=== PATIENT | male | born 1935 | race Caucasian/White ===

== ENCOUNTER → 2017-12-28 | Emergency (ER) | payer MEDICARE, OTHER ==
[~2017-12-28] VITALS: Ht 182.9 cm; Wt 70.3 kg
[~2017-12-28] MED LIST: AMLODIPINE BESYL5 MG PO; ASPIR-LOW81 MG PO; CRESTOR20 MG PO; FINASTERIDE5 MG PO; INCRUSE ELLI62.5 MCG; KLOR-CON M2020 MEQ PO; LASIX40 MG PO; METOPROLOL SUCC25 MG PO; NAPROSYN500 MG PO; NORCO 5-325 TA1 EACH PO; ROSUVASTATIN CA20 MG PO; VENTOLIN HFA18 GM INH
--- OUTSIDE RECORDS SUMMARY | ~2017-12-28 | XMS | Clinical Summary ---
Demographics + + + | Address | [address] | | | [place] [address] | + + + | Home Phone | | + + + | Preferred Language | Unknown | + + + | Marital Status | | + + + | Muslim Affiliation | Unknown | + + + | Race | Unknown | + + + | Ethnic Group | Unknown | + + + Author + + + | Author | [facility] | | | and [place] | + + + | Organization | [facility] | | | and [place] | + + + | Address | Unknown | + + + | Phone | Unavailable | + + + Support + + + + + | Name | Relationship | Address | Phone | + + + + + | Raymond Jacobs | [address] | [place], | | | | | [place] [address] | | + + + + + | Cesar Jacobs | ECON | Unknown | | + + + + + Care Team Providers + +------+ + | Care Printed Circuit Board Assembler Name | Role | Phone | + +------+ + | Adrián Jessica MD | PP | Unavailable | + +------+ + Allergies Not on File Current Medications Not on file Active Problems Not on file Social History + +-------+ +--------+------+ | Tobacco Use | Types | Packs/Day | Years | Date | | | | | Used | | + +-------+ +--------+------+ | Never Assessed | | | | | + +-------+ +--------+------+ + + + | Sex Assigned at | Date Recorded | | | | + + + | Not on file | | + + + Plan of Treatment + + + + + | Health Maintenance | Due Date | Last Done | Comments | + + + + + | Vaccine: | | | | | Dtap/Tdap/Td (1 - | 3 | | | | Tdap) | | | | + + + + + | Vaccine: Zoster (#1) | | | | | | 4 | | | + + + + + | Vaccine: | | | | | Pneumococcal 65+ | 9 | | | | Low/Medium Risk (1 | | | | | of 2 - PCV13) | | | | + + + + + | Vaccine: Influenza | | | | | (Season Ended) | 8 | | | + + + + + Results Not on filefrom Last 3 Months Insurance + +--------+ +--------+ +---------+ | Payer | Benefi | Subscriber | Type | Phone | Address | | | t Plan | ID | | | | | | / | | | | | | | Group | | | | | + +--------+ +--------+ +---------+ | MEDICARE | MEDICA | xxxxxxxxxx | Medica | [phone]- | | | | RE | | re | [phone] | | | | PART A | | | | | | | AND B | | | | | + +--------+ +--------+ +---------+ | CLAY | STERLI | xxxxxxxxxx | Indemn | [phone] | | | | NG | | ity | [phone] | | | | MDCR | | | | | | | SUPPL | | | | | | | CIGNA | | | | | + +--------+ +--------+ +---------+ + +--------+ +--------+ + + | Guarantor Name | Accoun | Relation to | Date | Phone | Billing Address | | | t Type | Patient | of | | | | | | | | | | + +--------+ +--------+ + + | LACHO JACOBS | Person | Self [birth year] Home: | [address] | | | al/Fam | | [phone] | [phone] | [place] [address] | | | leroy | | | [phone] | | + +--------+ +--------+ + +"
--- OUTSIDE RECORDS SUMMARY | ~2017-12-28 | XMS | Clinical Summary ---
Demographics + + + | Address | [address] | | | [place] [address] | + + + | Home Phone | | + + + | Preferred Language | Unknown | + + + | Marital Status | | + + + | Hindu Affiliation | Unknown | + + + | Race | Unknown | + + + | Ethnic Group | Unknown | + + + Author + + + | Author | [facility] | | | and [place] | + + + | Organization | [facility] | | | and [place] | + + + | Address | Unknown | + + + | Phone | Unavailable | + + + Support + + + + + | Name | Relationship | Address | Phone | + + + + + | Raymond Jacobs | [address] | [place], | | | | | [place] [address] | | + + + + + | Cesar Jacobs | ECON | Unknown | | + + + + + Care Team Providers + +------+ + | Care Scaffold Worker Name | Role | Phone | + [...] | STERLI | xxxxxxxxxx | Indemn | [phone] | | | | NG | | [...] | | al/Fam | | 1935 | [phone] | [place] [address] | | | [place]oy | | | [phone] | | + +--------+ +--------+ + +"
--- NOTE | 2017-12-28 14:32 | NUR ---
CHW received phone call before patient being seen in the ED from Thelma Borges. Cindy stated patient has been told he can no longer see Grace Solis as his PCP due to too many missed visits "which Thelma Corona was not aware of and or patient son." CHW contacted Grace Solis office and they stated that the patient is a higher standard of care and needs to be seen by an internal medicine doctor. They will refill his medications for the next 30 days. CHW provided the clinic packet to have patient to become established, CHW provided the packet to the patient son to fill out and he will turn it into the clinic to get the process started. CHW advised son to contact the clinic next week to make sure the process of the records is going okay and that a physician has been assigned.
--- NOTE | 2017-12-29 22:49 | EKG ---
[facility] [address] [facility] [place] [address] Signed Normal sinus rhythm Right bundle branch block Abnormal ECG When compared with ECG of 28-DEC-2016 10:36, premature atrial complexes are no longer present Confirmed by AMARI MONTES MD ([id number]) on 12/29/2017 10:48:50 PM Electronically Signed By: AMARI MONTES MD 12/29/17 2249 PATIENT NAME: NERY MCNALLY [place] Electrocardiogram DATE OF : 33 PHYSICIAN: AMARI MONTES MD REPORT #: [id number] REPORT IS CONFIDENTIAL AND NOT TO BE RELEASED WITHOUT AUTHORIZATION
== END ==
LOC: ED 14:09
DX: I13.0 Hypertensive heart and chronic kidney disease with heart failure and stage 1 through stage 4 chronic kidney disease, or unspecified chronic kidney disease (principal); N18.9 Chronic kidney disease, unspecified; I50.9 Heart failure, unspecified; J44.9 Chronic obstructive pulmonary disease, unspecified; F17.200 Nicotine dependence, unspecified, uncomplicated; Z79.899 Other long term (current) drug therapy
CPT/HCPCS: 71045; 80048; 83880; 84484; 85025; 93005; 93010; 99283

== ENCOUNTER 2018-11-07 20:04 | Inpatient (IN) | payer MEDICARE, OTHER ==
[~2018-11-07] VITALS: Ht 182.9 cm; Wt 78.1 kg
--- NOTE | 2018-11-08 01:43 | NUR ---
PATIENT ARRIVED TO THE FLOOR VIA STRETCHER. PATIENT ASSISTED TO THE HOSPITAL BED BY STAFF. PATIENTS ATTEND CHANGED. PATIENTS ADMISSION COMPLETED. PATIENT IS ON 4L VIA OXYMASK. RT IN ROOM. CPOX IN PLACE. PATIENT ORIENTED TO FLOOR, ROOM, AND CALL LIGHT. PATIENT VERBALIZES UNDERSTANDING. PATIENT WAS ABLE TO USE URINAL AND VOID. PATIENT DENIES ANY NEEDS. CALL LIGHT IN REACH. IV INFUSING PER ORDER. CALL LIGHT IN REACH. BED ALARM ON FOR SAFETY.
--- NOTE | 2018-11-08 05:11 | NUR ---
CURRENTLY RESINT, OXYMASK 4L NC O2 INPLACE. CHRONIC. BOTH EYES WITH SCANT YELLOW EYE DRAINAGE PRESENT AND RED CONJUCTIVA. HAS MOIST PRODUCTIVE COUGH OF THICK WHITE PHLEGM. RECEIVED NEBS, CRACKLES BOTH LUNGS. PT ASPIRATED FOOD AFTER EATING. . TURNS SELF IN BED. WAS COOPERATIVE WITH ASSESSMENT. BRUISING OF R ELBOW AND L HAND PRESENT, NOT OPEN.. BED ALARM ON
--- NOTE | 2018-11-08 07:22 | NUR ---
RECEIVED REPORT FROM SUSTAINABLE DEVELOPMENT POLICY ANALYST RN. PT LYING IN BED ON LEFT SIDE. 4L MASK IN PLACE. RESPIRATIONS EQUAL AND NONLABOED. CPOX IN PLACE. SATURATIONS 97%. FLUIDS COMPLETED. PT SALINE LOCKED. CALL LIGHT IN REACH. AND BED ALARM IN PLACE.
--- NOTE | 2018-11-08 09:13 | NUR ---
PT INCONT OF URINE. LINENS CHANGED. SBA WITH FWW TO CHAIR FOR BREAKFAST. PT WITH LABORED BREATHING. COUGHING UP LARGE AMOUNT OF CLEAR THICK SPUTUM. ACCAPELLA USED WHILE UP IN CHAIR. 4L NC IN PLACE. SATURATION 9`1% HEART RATE 74. PT IS SOME CONFUSED BTU REORIENTS EASY. MEDICATIONS ADMINISTERED. CALL LIGHT IN REACH. LUNGS COARSE. 3+ EDEMA IN LEFT FOOT, 2+ IN RIGHT FOOT. PT DENEIS N/T. BOWEL TONES ACTIVE. DENIES FURTHER NEEDS.
--- NOTE | 2018-11-08 09:53 | NUR ---
PT EXPECTING TO RETURN TO [facility].
--- NOTE | 2018-11-08 11:00 | NUR ---
SBA TO BATHROOM FOR MED BOWEL MOVEMENT.
[2018-11-08] MEDS ORDERED: ANORO ELLIPTA1 EACH INH (11:43)
[2018-11-08] MEDS ORDERED: PENLAC TOP (11:44)
[2018-11-08] MEDS ORDERED: FUROSEMIDE80 MG PO (11:45)
[2018-11-08] MEDS ORDERED: POTASSIUM CHLO20 ME1 PO (11:47)
[2018-11-08] MEDS ORDERED: TAMSULOSIN HCL0.4 MG PO (11:48)
[2018-11-08] MEDS ORDERED: TYLENOL325 MG PO (11:49)
--- NOTE | 2018-11-08 11:50 | NUR ---
PT IN CHAIR FOR LUNCH. CLEAR TRAY. 4L NC AND CPOX IN PLACE. SATURATIONS AND HEART RATE WNL. CALL LIGHT IN REACH.
[2018-11-08] MEDS ORDERED: ALBUTEROL2.5 MG/3 M INH (11:51)
[2018-11-08] MEDS ORDERED: IPRAT-ALBUT 0.5-3 ML INH (11:51)
[2018-11-08] MEDS ORDERED: MUCINEX600 MG PO (11:52)
[2018-11-08] MEDS ORDERED: MUSCLE RUB ULT114 GM TOP (11:54)
[2018-11-08] MEDS ORDERED: CICLOPIROX6.6 ML TOP (11:55)
--- NOTE | 2018-11-08 11:56 | NUR ---
MED REC COMPLETE
--- NOTE | 2018-11-08 13:54 | NUR ---
ST IN TO SEE PT
--- NOTE | 2018-11-08 14:15 | NUR ---
PT SITTING IN CHAIR, VOID BAG IN HAND. PT IS HARD OF HEARING-RATHER DIFFICULT TO CARRY ON CONVERSATION. CONFUSED TO WHY I WAS PRESENT, VISITED , EXTENDED A BLESSING, WILL FOLLOW NEEDED
--- NOTE | 2018-11-08 15:00 | NUR ---
DR MONTES IN TO ROUND ON PT. PLAN OF CARE DISCUSSED WITH PATIENT AND FAMILY. QUESTIONS ANSWERED.
--- NOTE | 2018-11-08 17:35 | NUR ---
PATIENT WITHOUT VOID. BLADDERSCAN WAS 460ML. DR MONTES NOTIFIED. ORDER TO STRAIGHT CATH.
--- NOTE | 2018-11-08 18:24 | NUR ---
STRAIGHT CATH WITH 450ML OUT. PT SBA TO BED. INCREASED WORK OF BREATHING WITH RESP 40 BREATHS PER MINUTE. O2 SATURATION 90-96% ON 4L NC, LUNGS WITH EX AND IN WHEEZING. RT NOTIFIED FOR BREATHING TREATMENT. TREATMENT DONE, RESPIRAITONS STAYED AT [address] MONTES NOT[address] DR MONTES TO FLOOR TO ASSESS PT. CHEST X RAY ORDERED. PT MOVED TO CCU.
--- NOTE | 2018-11-08 18:58 | NUR ---
PT TRANSFERED FROM MED/SURG. BIPAP PLACED PER RESP THERAPY. PT VITALS STABLE AT THIS TIME. PT SITTING UP STRAIGHT IN BED. WOB IS SIGNIFICANT.
--- NOTE | 2018-11-08 19:32 | NUR ---
PATIENT IS SITTING WITH HOB ELEVATED, RR 24 ON BIPAP, SPO2 97% WITH 28% FIO2. PATIENT DOES NOT APPEAR TO BE IN RESPIRATORY DISTRESS, WHEN ASKED HOW PATIENT IS FEELING, HE STATES "I DON'T REALLY KNOW HOW TO ANSWER THAT YET." DENIES NEEDS AT THIS TIME. LUNGS ARE CLEAR THROUGHOUT, DIM IN BASES, VITALS WNL. 2+ PITTING EDEMA IN BLE NOTED. PERIPHERAL PULSES WELL FELT IN ALL PERIPHERY. CALL LIGHT WITHIN REACH. RT IN ROOM TO START NEB TREATMENT.
--- NOTE | 2018-11-08 20:30 | NUR ---
DUE TO HISTORY OF BPH, ASKED DR. MONTES IF OKAY FOR COUDE PLACEMENT, HE WAS AGREABLE. PATIENT TOLERATED COUDE INSERTION WITH HOB DOWN TO 20 DEGREES, RR INCREASED TO 26, SPO2 REMAINS >95% REMAINING ON BIPAP. SMALL AMOUNT OF PALE YELLOW URINE RETURN NOTED, 5CC SALINE IN [place]. PATIENT NOTED TO REQUIRE FREQUENT RE-ORIENTATION TO SITUATION AND PLAN OF CARE. PATIENT NOW RESTING AGAIN WITH HOB ELEVATED. BED ALARM ON, CALL LIGHT WITHIN REACH, FAMILY AT BEDSIDE.
--- NOTE | 2018-11-08 20:59 | NUR ---
PATIENT NOW RESTFUL WITH EYES CLOSED, BREATHING IS EVEN AND UNLABORED, RR 18, SPO2 95% ON BIPAP WITH 28% FIO2. DENIES PAIN, DENIES NAUSEA, NO NEEDS AT THIS TIME. IVF INFUSING. CALL LIGHT WITHIN REACH, KIRAN DRAINING, BED ALARM ON.
--- NOTE | 2018-11-08 22:36 | NUR ---
PATIENT RESTFUL WITH EYES CLOSED, BREATHING IS EVEN AND UNLABORED, RR BETWEEN 19 AND 24 ON BIPAP, SPO2 96% ON 28% FIO2. DENIES NEEDS AT THIS TIME. CALL LIGHT WITHIN REACH, BED ALARM ON.
--- NOTE | 2018-11-09 | NUR ---
PATIENT RESTFUL WITH EYES CLOSED, BREATHING IS EVEN AND UNLABORED, SPO2 96% ON BIPAP WITH 28% FIO2, RR 17. DENIES NEEDS AT THIS TIME. RT IN TO DO BREATHING TREATMENT. CALL LIGHT WITHIN REACH, BED ALARM ON.
--- NOTE | 2018-11-09 01:27 | NUR ---
PATIENT RESTFUL WITH EYES CLOSED, BREATHING IS EVEN AND UNLABORED, SPO2 96%, RR 17 ON BIPAP, FIO2 28%. FLACC SCORE OF 0. CALL LIGHT WITHIN REACH, BED ALARM ON.
--- NOTE | 2018-11-09 03:35 | NUR ---
RESTFUL WITH EYES CLOSED, BREATHING IS EVEN AND UNLABORED, RR 18, SPO2 97% ON BIPAP 28% FIO2. FLACC SCORE OF 0. CALL LIGHT WITHIN REACH, BED ALARM ON.
--- NOTE | 2018-11-09 05:06 | NUR ---
BREATHING REMAINS UNLABORED WITH BIPAP, VITALS WNL. CALL LIGHT WITHIN REACH, BED ALARM ON.
--- NOTE | 2018-11-09 06:15 | NUR ---
PATIENT BREATHING IS EVEN AND UNLABORED ON BIPAP, VITALS WNL. DENIES NEEDS AT THIS TIME. CALL LIGHT WITHIN REACH, BED ALARM ON.
--- NOTE | 2018-11-09 07:05 | NUR ---
PATIENT REPORTS PAIN IN LOWER BACK, FLACC SCORE 4, PRN TYLENOL GIVEN PER PATIENT'S REQUEST, AFEBRILE. LINEN CHANGE DONE AFTER IV INFILTRATION. DENIES FURTHER NEEDS. CALL LIGHT WITHIN REACH, BED ALARM ON.
--- NOTE | 2018-11-09 07:30 | NUR ---
REPORT RECIEVED. PATIENT IS SITTING UP IN BED EATING BREAKFAST. TALKED WITH PATIENT ABOUT PLAN OF CARE FOR DAY. IVF, KIRAN CATH PATENT.
--- NOTE | 2018-11-09 07:50 | EKG ---
[facility] [address] [facility] [place] [address] Signed Poor data quality, interpretation may be adversely affected Normal sinus rhythm Right bundle branch block Abnormal ECG When compared with ECG of 28-DEC-2017 15:15, No significant change was found Confirmed by AMARI MONTES MD ([id number]) on 11/09/2018 7:50:40 AM Electronically Signed By: AMARI MONTES MD 11/09/18 0750 PATIENT NAME: NERY MCNALLY [place] Electrocardiogram DATE OF : 33 PHYSICIAN: AMARI MONTES MD REPORT #: [id number] REPORT IS CONFIDENTIAL AND NOT TO BE RELEASED WITHOUT AUTHORIZATION
--- NOTE | 2018-11-09 09:00 | NUR ---
ASSESSMENT DONE. TOOK BREAKFAST WELL. DENIES NAUSEA. HOB ELEVATED.
--- NOTE | 2018-11-09 09:30 | NUR ---
ROUTINE MEDICATIONS GIVEN, TOLERATED WELL. DENIES PAIN.
--- NOTE | 2018-11-09 10:06 | NUR ---
STUDENT NURSE AND RN ASSESSED PATIENT AT BEDSIDE. PATIENT RESTING COMFORTABLY IN BED. O2 SATS AT 91. RN AND SN ASSISTED PAITENT AMBULATION TO CHAIR. PATIENT CONFUSED AND DISORIENTED TO LOCATION AND SITUATION. PATIENT ABLE TO ORIENT TO TIME AND PLACE IF GIVEN TIME TO THINK. PATIENT SEEMS TO BE SLIGHTLY ANXIOUS AND HAVING TROUBLE RELAXING, SEEMS TO BE OVERSTIMULATED. PATIENT IS RECLINED IN CHAIR AT THIS TIME. WILL CONTINUE TO MONITOR.
--- NOTE | 2018-11-09 10:45 | NUR ---
TO COMMODE WITH ASSIST.
--- NOTE | 2018-11-09 11:00 | NUR ---
BACK TO BED AFTER HAVING BM. HAD FOMED STOOL. VERY SHORT OF BREATH WITH EXERTION. BIPAP APPLIED.
--- NOTE | 2018-11-09 12:05 | NUR ---
PATIENT RESTING WITH BIPAP. VITALS AND UOP ASSESSED AND CHARTED. PATIENT REMAINS SOMEWHAT DISORIENTED TO SITUATION, ABLE TO ORIENT WITH GUIDED CONVERSATION. PATIENT STATES FEELING FRUSTRATED AND WORTHLESS REGARDING SITUATION. RN ACKNOWLEDGED PT FEELINGS AND REASSURED PATIENT. O2 SATS AT 98 WITH BIPAP. NO COMPLAINTS OF PAIN OR DISCOMFORT AT THIS TIME.
--- NOTE | 2018-11-09 13:10 | NUR ---
SITING UP IN BED TO EAT LUNCH. BIPAP HELD, O2 AT 3 L NC APPLIED WHILE EATING.
--- NOTE | 2018-11-09 13:30 | NUR ---
TOOK LUNCH WELL. REMAINS ON O2 AT 3 L NC. LESS DYSPNEIC.
--- NOTE | 2018-11-09 13:35 | NUR ---
BISQUE PLACER FEELS PT HAS BEEN HELPED BY BI-PAP. PT WAS SITTING UP IN BED, NO TV ON AND ALONE IN RM. PTSEEMED SOMEWHAT ANXIOUS WITH MY PRESENCE. I GAVE HIM A BLESSING-HE SHOOK MY HAND, WITH SOME APPRENHENSION. GOD BLESS HIM
--- NOTE | 2018-11-09 14:40 | NUR ---
SLEEPING, NO DISTESS NOTED. REMAINS ON O2 A 3 L NC.
--- NOTE | 2018-11-09 16:00 | NUR ---
ASSESSMENT DONE. STATES HE FEELING BETTER NOW. HOB ELEVATED. NO FUTHER CHANGES.
--- NOTE | 2018-11-09 16:15 | NUR ---
TO COMMODE WITH ASSIST TO EXPELL LARGE FORMED BROWN STOOL. BACK TO BED AFTER SITTING ON COMMODE FOR APPROX 10. VERY DYSPNEIC UPON RETURN TO BED. BIPAP APPLIED.
--- NOTE | 2018-11-09 17:30 | NUR ---
TOOK DINNER WELL. IS SHORT OF BREATH, PRODUCTIVE COUGH. BIPAP REAPPLIED.
--- NOTE | 2018-11-09 18:33 | NUR ---
REMAINS ON O2 AT 3 L NC.
--- NOTE | 2018-11-09 19:51 | NUR ---
PATIENT IS RESTFUL WITH EYES CLOSED, BREATHING IS EVEN AND UNLABORED ON BIPAP, SPO2 BETWEEN 94 AND 96% WITH 28% FIO2, LUNGS ARE CLEAR, DIM IN BASES. DENIES PAIN, HAS NO NEEDS AT THIS TIME. IV SITE INTACT, IVF INFUSING PER ORDER. CALL LIGHT WITHIN REACH, BED ALARM ON.
--- NOTE | 2018-11-09 21:28 | NUR ---
PATIENT RESTING WELL WITH BIPAP, BREATHING IS UNLABORED. VITALS WNL, RR 18, SPO2 94% WITH 28% FIO2. CALL LIGHT WITHIN REACH, BED ALARM ON.
--- NOTE | 2018-11-09 23:16 | NUR ---
PATIENT REMAINS RESTFUL WITH BIPAP, VITALS WNL. CALL LIGHT WITHIN REACH, BED ALARM ON.
--- NOTE | 2018-11-10 03:04 | NUR ---
REMAINS RESTFUL WITH BIPAP, VITALS WNL. CALL LIGHT WITHIN REACH.
--- NOTE | 2018-11-10 04:45 | NUR ---
PATIENT RESTFUL, REQUIRED RE-ORIENTATION TO PLACE AND SITUATION. DENIES PAIN, DENIES NEEDS AT THIS TIME. LUNGS ARE CLEAR, BREATHING IS UNLABORED, RR 18, SPO2 95% ON BIPAP. CALL LIGHT WITHIN REACH, BED ALARM ON.
--- NOTE | 2018-11-10 06:23 | NUR ---
PATIENT REQUESTING BIPAP TO BE TAKEN OFF FOR A WHILE, PLACED ON 4L O2 VIA NC, SPO2 BETWEEN 94 TO 96%, TITRATED TO 3L, SPO2 NOW BETWEEN 89 AND 92%. PATIENT HAS PRODUCTIVE COUGH, THICK YELLOW SPUTUM EXPECTORATED. DENIES FURTHER NEEDS AT THIS TIME. CALL LIGHT WITHIN REACH, BED ALARM ON.
--- NOTE | 2018-11-10 07:40 | NUR ---
PT ASLEEP AT THIS TIME. NO S/S OF PAIN OR DISCOMFORT. WILL CONTINUE TO MONITOR.
--- NOTE | 2018-11-10 08:24 | NUR ---
PT IS WIDE AWAKE SITTING UP IN BED, VERY PLEASANT AND COOPERATIVE. PT COUGHING UPON MY ARRIVAL INTO THE ROOM, A VERY HARSH, LOOSE COUGH WITH THICK YELLOW SPUTUM PRODUCTION. PT SOMEWHAT ANXIOUS OVER HIS FREQUENT COUGH. PT IS DISORIENTED TO SITUATION/EVENT AND THE YEAR. THIS RN REORIENTED HIM. HE DENIES ANY PAIN OR N/V. LUNG SOUNDS ARE DIMINISHED. I PLACED PT BACK ON 4 L/MIN O2 VIA NC FROM 2 L/MIN HIS O2 SATS WERE IN THE 80'S. ACTIVE BOWEL SOUNDS. PT SIPPING COFFEE AT THIS TIME; STATES HE WANTS TO WAIT UNTIL HIS BREAKFAST IS HERE TO SIT UP IN RECLINER. TRACE PITTING EDEMA IN BLE. EDUCATION COMPLETED. PT DENIES ANY FUTHER NEEDS AT THIS TIME. CALL LIGHT WITHIN REACH. FALL PRECAUTIONS IN PLACE. WILL CONTINUE TO MONITOR.
--- NOTE | 2018-11-10 09:00 | NUR ---
ASSISTED PT X1 PERSON ASSIST, UP TO RECLINER FROM BED. PT NOW SITTING UP EATING BREAKFAST THAT HAS JUST ARRIVED. SOB WITH AMBULATION TO CHAIR. SOME WEAKNESS WHEN UP ON HIS FEET. DENIES ANY FURTHER NEEDS AT THIS TIME. CALL LIGHT WITHIN REACH. WILL CONTINUE TO MONITOR.
--- NOTE | 2018-11-10 09:48 | NUR ---
THIS RN ASSISTED PT TO AND FROM COMMODE/RECLINER PER HIS REQUEST FOR A BM. SMALL, SOFT BM WAS HAD. PT ALSO GIVEN FULL BATH AT THIS TIME. KIRAN CARE. ZENAIDA CARE. FACE WASHED AND DENTURE CARE PROVIDED. HE ATE 100% OF HIS EGGS AND TOAST AND DRINKING FLUIDS. PT REMAINS VERY SOB WITH AMBULATION AND EXERTION- NEEDS SUPPORT IN RELAXATION AND REMINDING TO DEEP BREATHE- HE GETS ANXIOUS. PT BACK IN RECLINER AT THIS TIME WITH ADEQUATE O2 SATURATIONS WITH 4 L/MIN O2 VIA NC IN PLACE. DENIES ANY FURTHER NEEDS. CALL LIGHT WITHIN REACH. FALL PRECAUTIONS IN PLACE. WILL CONTINUE TO MONITOR.
--- NOTE | 2018-11-10 10:24 | NUR ---
PT UP IN RECLINER, NAPPING WITHOUT ANY S/S F DISCOMFORT OR PAIN. NO SOB OR BREATHING ISSUES AT THIS TIME. CALL LIGHT WITHIN REACH. WILL CONTINUE TO MONITOR.
--- NOTE | 2018-11-10 11:40 | NUR ---
KIRAN CATH REMOVED AT THIS TIME WITHOUT COMPLICATION. NOW DUE TO VOID AND WILL CONTINUE TO MONITOR/ FOLLOW UP ON OUTPUT.
--- NOTE | 2018-11-10 12:01 | NUR ---
ASSESSMENT COMPLETE AGAIN AT THIS TIME. VS AND CONDITION STABLE. PT REMAINS AWAKE AND ALERT, CONFUSED/FORGETFUL, AND WITH INTERMITTENT ANXIETY, REQUIRING FREQUENT REMINDING TO DEEP BREATHE/OTHER RELAXATION TECHNIQUES. PT'S UP IN RECLINER WITH 4 L/MIN [address] WITH O2 SAT OF 93. THIS LAST HOUR HE WAS SEEN BY DR. MONTES AND RT FOR ANOTHER DUONEB TREATMENT. DUE TO VOID SINCE KIRAN REMOVED AT 1140. URINAL AT HIS SIDE. EDUCATION AND REINFORCEMENT COMPLETED. DENIES PAIN AND N/V. PT'S LUNCH HAS JUST ARRIVED WHICH HE IS STARTING TO EAT. DENIES ANY NEEDS AT THIS TIME. CALL LIGHT WITHIN REACH. FALL PRECAUTIONS IN PLACE. WILL CONTINUE TO MONITOR.
--- NOTE | 2018-11-10 13:19 | NUR ---
PT UP IN RECLINER RESTING, NO TACHYPNEA AT THIS TIME. HE STATES HE'S COMFORTABLE WITH NO REQUESTS OR NEEDS TO BE MET. CALL LIGHT WITHIN REACH. WILL CONTINUE TO MONITOR.
--- NOTE | 2018-11-10 13:39 | NUR ---
100% OF LUNCH EATEN (TURKEY SANDWICH WITH SIDE OF FRUIT). REMAINS UP IN RECLINER. PO POTASSIUM GIVEN WELL SCHEDULED SOLU-MED- EDUCATION ON MEDICATION PROVIDED. CALL LIGHT WITHIN REACH. WILL CONTINUE TO MONITOR.
--- NOTE | 2018-11-10 14:46 | NUR ---
PT RESTING IN RECLINER WITH NO CONCERNS OR NEEDS TO BE MET. STATES THAT HE'S COMFORTABLE. RESP RATE IS STABLE. CALL LIGHT WITHIN REACH. FALL PRECAUTIONS IN PLACE. WILL CONTINUE TO MONITOR.
--- NOTE | 2018-11-10 16:02 | NUR ---
ASSESSMENT COMPLETED. NO CHANGES TO ASSESSMENT OTHER THAN 1) COURSE CRACKLES HEARD IN BILATERAL BASES AND 2) PT HAS SINCE VOIDED 100 ML URINE INTO URINAL. PT REMAINS UP IN THE RECLINER, ABLE TO REPOSITION HIMSELF NEEDED. HE DENIES ANY PAIN OR N/V. NO CURRNT TACHYPNEA BUT STILL HAS MUCH SOB WITH EXERTION. PT USES ORAL YANKAUR HOOKED UP TO SUCTION TO ASSIST WITH HIS LARGE AMOUNT OF SPUTUM. REINFORCEMENT OF PLAN OF CARE GIVEN- PT FORGETFUL OF SITUATION AT TIMES. HE DENIES ANY NEEDS AT THIS TIME. CALL LIGHT WITHIN REACH. FALL PRECAUTIONS IN PLACE. WILL CONTINUE TO MONITOR.
--- NOTE | 2018-11-10 16:48 | NUR ---
2 VISITORS IN ROOM SEEING PT.
--- NOTE | 2018-11-10 17:10 | NUR ---
RAGHAV MORALESSIN GIVEN AGAIN AT THIS TIME. HE REMAINS PLEASANT UP IN THE RECLINER AWAITING HIS DINNER ORDER. PT STATES HE HAS NO NEEDS TO BE MET AT THIS TIME. CALL LIGHT WITHIN REACH. WILL CONTINUE TO MONITOR.
--- NOTE | 2018-11-10 18:27 | NUR ---
100% OF DINNER EATEN (PASTA WITH CHICKEN, DINNER ROLL, CUP OF FRUIT, ORANGE SHERBET AND CARROT CAKE). PT DRINKING COFFEE WITHOUT ANY CONCERNS OR NEEDS TO BE MET. CALL LIGHT WITHIN REACH. WILL CONTINUE TO MONITOR.
--- NOTE | 2018-11-10 18:43 | NUR ---
PRN TYLENOL GIVEN FOR PT'S C/O HEADACHE. HE REQUESTS TO SIT UP IN HIS RECLINER A WHILE LONGER BEFORE GETTING INTO BED FOR THE NIGHT. CALL LIGHT WITHIN REACH. WILL CONTINUE TO MONITOR.
--- NOTE | 2018-11-10 19:28 | NUR ---
PATIENT RESTFUL WITH EYES CLOSED SITTING UP IN CHAIR, SPO2 94% ON 4L O2 VIA NC, RR 25. PATIENT STATES "I AM FEELING OKAY RIGHT NOW." REPORTS FEELING MILDLY SOB. DENIES NEEDS AT THIS TIME. AT REST WITH EYES CLOSED AGAIN, RR DOWN TO 20. CALL LIGHT WITHIN REACH.
--- NOTE | 2018-11-10 21:04 | NUR ---
ASSISTED PATIENT FROM CHAIR TO BED WITH 1PA. PATIENT BECAME SOB WITH RR INCREASING BETWEEN 36 AND 42, SPO2 DOWN TO 86% WITH 4L O2 VIA NC, PATIENT APPEARS ANXIOUS AND STATES "THIS IS BAD, THIS IS REALLY BAD." ONCE IN BED, HOB ELEVATED TO 90 DEGREES, PLACED PATIENT ON ON BIPAP WITH 10 IPAP, 5 EPAP AND 28% FIO2, ENCOURAGED PATIENT TO ALLOW BIPAP TO ASSIST WITH VENTILATION. AFTER FIVE MINUTES ON BIPAP, PATIENT SPO2 96%, RR DOWN TO 20, PATIENT REPORTS "I AM STARTING TO FEEL BETTER NOW. IT IS EASIER TO BREATHE." APPEARS LESS ANXIOUS, BREATHING IS UNLABORED. LUNGS ARE CLEAR IN UPPER SAMUEL, LOWER SAMUEL ARE COARSE AND DIM. ALL VITALS NOW WNL. PATIETN DENIES FURTHER NEEDS AT THIS TIME. CALL LIGHT WITHIN REACH, BED ALARM ON.
--- NOTE | 2018-11-10 23:21 | NUR ---
ASSISTED TO BEDSIDE TO USE URINAL, PATIENT TOLERATED MOVEMENT WELL WITHOUT AN INCREASE IN WORK OF BREATHING, SPO2 REMAINS >88% WITH ACTIVITY. NOW RESTING COMFORTABLY IN BED AGAIN, BREATHING IS UNLABORED WITH BIPAP. DENIES FURTHER NEEDS. CALL LIGHT WITHIN REACH, BED ALARM ON.
--- NOTE | 2018-11-11 00:47 | NUR ---
RT IN ROOM TO DO SCHEDULED BREATHING TREATMENT, PATIENT AWAKE AND PULLING ON BIPAP MASK AND REQUESTING TO HAVE MASK TAKEN OFF. EDUCATED PATIENT ABOUT NEED FOR BIPAP TO ASSIST WITH BREATHING, PATIENT STATES HE UNDERSTANDS. REQUIRED RE-ORIENTATION TO PLACE AND SITUATION, PURPOSE FOR BIPAP AND BEING IN CCU. PATIENT AGREABLE TO PUT BIPAP BACK ON. NOW RESTING WITH BIPAP, DENIES FURTHER NEEDS AT THIS TIME. CALL LIGHT WITHIN REACH, BED ALARM ON.
--- NOTE | 2018-11-11 01:20 | NUR ---
PATIENT CONTINUES TO NOT TOLERATE BIPAP AND TRYING TO PULL IT OFF AND STATES "THIS THING IS KEEPING ME AWAKE." PATIENT PLACED ON 4L O2 NC. WITH NC, SPO2 94%, RR 20. DENIES FURTHER NEEDS. CALL LIGHT WITHIN REACH, BED ALARM ON.
--- NOTE | 2018-11-11 03:19 | NUR ---
PATIENT RESTFUL WITH EYES CLOSED, BREATHING IS UNLABORED, SPO2 96% ON 4L O2 VIA NC, RR 18. TITRATED O2 TO 3L. CALL LIGHT WITHIN REACH, BED ALARM ON.
--- NOTE | 2018-11-11 04:22 | NUR ---
PATIENT PLACED ON BIPAP AGAIN, RECEIVED NEB TREATMENT THROUGH MASK, TOLERATING BIPAP WELL, ABLE TO REST WITH EYES CLOSED. RR BETWEEN 14 AND 18 WHILE LAYING ON SIDE, SPO2 95%. DENIES NEEDS AT THIS TIME. CALL LIGHT WITHIN REACH.
--- NOTE | 2018-11-11 05:51 | NUR ---
PATIENT REMAINS RESTFUL WITH EYES CLOSED, FLACC SCORE OF 0. RR 17,, SPO2 93% WITH BIPAP. CALL LIGHT WITHIN REACH, BED ALARM ON.
--- NOTE | 2018-11-11 06:44 | NUR ---
PATIENT PULLING BIPAP OFF AND TRYING TO GET OUT OF BED TO GO TO BATHROOM. PLACED ON 4L O2 NC, ASSISTED TO SITTING AT EDGE OF BED. PATIENT TACHYPNEIC WITH ACTIVITY, RR UP TO HIGH 30s, SPO2 DOWN TO 86%. PATIENT STATES FEELING "VERY ANXIOUS." ONCE DONE VOIDING, PATIENT PUT BACK TO BED AND PLACED BACK ON BIPAP, ENCOURAGED PATIENT TO REST WITH BIPAP BACK ON. PATIENT ASKS "WHAT CAUSES ALL OF THIS? I THOUGHT I WAS GETTING BETTER." EDUCATED PATIENT ABOUT CURRENT CONDITION AND THE PLAN OF CARE, UNABLE TO ASSESS PATIENT'S UNDERSTANDING DUE TO INCREASED WORK OF BREATHING AND ANXIETY. PATIENT NOW HAS RR OF 19, SPO2 98% AND STATES "I JUST NEED TO REST." CALL LIGHT WITHIN REACH.
--- NOTE | 2018-11-11 07:30 | NUR ---
PT VERY ANXIOUS, THRASHING AROUND IN BED, STATING HE'S A "NUTCASE," REPEATING THAT SOMETHING'S WRONG IN HIS HEAD, ASKING IF HE'S IN A PSYCH [place], ASKING US NOT TO "LET HIM LOOSE" BECAUSE HE'S "GOING CRAZY." EMOTIONAL SUPPORT GIVEN. THERAPEAUTIC COMMUNICATION. REINFORCEMENT AND REORIENTATION.
--- NOTE | 2018-11-11 07:48 | NUR ---
MORPHINE GIVEN AT THIS TIME. PT REPOSITIONED AND STRAIGHTENED UP IN BED, SITTING UP AT 75 DEGREES IN BED WITH BED ALARM IN PLACE.
--- NOTE | 2018-11-11 07:56 | NUR ---
PT MORE CALM AT THIS TIME. NO LONGER MOVING AROUND IN THE BED. SITTING UP SIPPING HIS COFFEE. MORE COMFORTING SUPPORT GIVEN AT THIS TIME TO CALM HIS NERVES. PT STATES HE "DOESN'T KNOW WHAT HE'S GOING TO DO." BED ALARM IN PLACE, CALL LIGHT WITHIN REACH. WILL CONTINUE TO CLOSELY MONITOR.
--- NOTE | 2018-11-11 08:19 | NUR ---
PT EATING BREAKFAST SITING UPRIGHT IN BED. AFTER SPENDING TIME TALKING WITH PT, DISTRACTING HIM WITH CONVERSATION FROM HIS ANXIETY, HE'S MORE CALM, ALTHOUGH STILL SOMEWHAT ANXIOUS. CALL LIGHT IN REACH, BED ALARM IN PLACE, WILL CONTINUE TO MONITOR.
--- NOTE | 2018-11-11 09:02 | NUR ---
PT RESTING IN BED. HE ATE 100% OF HIS BREAKFAST- EGG SANDWICH, FRUIT CUP AND YOGURT. HE'S SIPPING COFFEE RESTING, WITH SOME ANXETY. HE FREQUENTLY ASKS WHAT HE SHOULD BE DOING AND I REINFORCED TO COUGH/DEEP BREATHE AND REST. REMAINS ON 4 L/MIN O2 VIA NC. PRN ROBITUSSIN GIVEN WELL SCHEDULED MEDS. HE HAS NO OTHER QUESTIONS AT THIS TIME. DENIES ANY FURTHER NEEDS ANE DENIES ANY PAIN, DENIES N/V. COUGH REMAINS PRODUCTIVE WITH THICK SECRETIONS. CALL LIGHT WITHIN REACH. FALL PRECAUTIONS IN PLACE WITH BED ALARM ON. WILL CONTINUE TO MONITOR.
--- NOTE | 2018-11-11 10:05 | NUR ---
FULL BED BATH COMPLETE AT THIS TIME, INCLUDING PERICARE PRIOR TO KIRAN PLACEMENT SHORTLY. LINENS CHANGED. LOTION APPLIED TO DRY SKIN. FOUND PT'S BRIEF SATURATED WITH LARGE AMOUNT OF INCONTINENT URINE EPISODE. CHANGED AND CLEANED.
--- NOTE | 2018-11-11 10:20 | NUR ---
COUDE TIPPED CATHETER PLACED AT THIS TIME WITHOUT COMPLICATION- LIDOCAINE PROVIDED AT THE ENTRANCE SITE PRIOR WELL FULL ZENAIDA CARE WITH BED BATH PRIOR TO PLACEMENT. IMMEDIATE URINE FLOW OUTPUT 435 ML. KIRAN TO UROMETER BAG AND SECURED TO LEG WITH STATLOCK; KIRAN BELOW THE BLADDER.
--- NOTE | 2018-11-11 10:30 | NUR ---
SOB AND INABILITY TO CATCH HIS BREATHE AT THIS TIME- HE AGREED TO SPEND SOME TIME ON BIPAP. BIPAP PLACED AT THIS TIME.
--- NOTE | 2018-11-11 11:30 | NUR ---
PT REMAINS ON BIPAP AT THIS TIME- HE'S THE MOST AT EASE THAN HE'S BEEN ALL MORNING. EDUCATION GIVEN TO PT ABOUT BIPAP AND PT AGREES HE'D LIKE TO STAY ON IT IT HAS HELPED HIS WORK OF BREATHING. KIRAN IS DRAINING ADEQUATELY AND PT APPEARS VERY COMFORTABLE FOR THE FIRST TIME TODAY. PT DENIES ANY NEEDS. CALL LIGHT WITHIN REACH. FALL PRECAUTIONS IN PLACE WITH BED ALARM ON. WILL CONTINUE TO MONITOR.
--- NOTE | 2018-11-11 12:14 | NUR ---
ASSESSMENT COMPLETED AT THIS TIME. PT REMAINS ON BIPAP RESTING IN BED. PT DENIES PAIN, DENIES ANY N/V, AND DENIES ANY SOB OR BREATHING TROUBLES. HE APPEARS VERY COMFORTABLE AND HE WANTS TO KEEP BIPAP ON- HE STATES HE FEELS REALLY TIRED AND WEAK. EDUCATION GIVEN TO HIM ON OXYGENATION, COPD/WORK OF BREATHING, AND WHY HE WILL BE KEPT IN THE BED OPPOSED TO RECLINER AT THIS TIME. KIRAN DRAINING CLEAR, LIGHT YELLOW URINE. HE IS SALINE LOCKED. LUNGS SOUND DIMINISHED THROUGHOUT. VSS AND REMAINS NSR ON TELE. HE DENIES ANY NEEDS OTHER THAN THE TIME TO REST. CALL LIGHT WITHIN REACH. WILL CONTINUE TO MONITOR.
--- NOTE | 2018-11-11 12:44 | NUR ---
PT REQUESTS NASAL CANNULA AND LUNCH AT THIS TIME. NO SOB OR TACHYPNEA. PT APPEARS TO BE SOMEWHAT DEPRESSED IN REGARDS TO HIS CONDITION- HE MENTIONED, "IT'S NEVER BEEN LIKE THIS BEFORE. MY LUNGS ARE WORSE. MY LUNGS ARE SHOT." IT APPEARS HE IS GRASPING AND COMING TO TERMS WITH THE SEVERITY OF HIS COPD. EMOTIONAL SUPPORT PROVIDED AND ANSWERED QUESTIONS THE PT HAD. HIS COUGH HAS IMPROVED COMPARED TO THIS AM. WILL KEEP UP WITH ROBITUSSIN ADMIN. CALL LIGHT WITHIN REACH. WILL CONTINUE TO MONITOR.
--- NOTE | 2018-11-11 13:07 | NUR ---
PRN ROBITUSSIN GIVEN AT THIS TIME. PT RESTING IN BED UPRIGHT WITH 4 L/MIN O2 VIA NC IN PLACE. HE'S CALM AND PLEASANT. NO QUESTIONS OR NEEDS TO BE MET- AWAITING HIS LUNCH TRAY. CALL LIGHT WITHIN REACH. WILL CONTINUE TO MONITOR.
--- NOTE | 2018-11-11 14:10 | NUR ---
PT ASSISTED BACK TO LAYING IN BED; PT HAD SAT ON THE EDGE OF THE BED FOR HIS LUNCH. PT WAS SOB WITH THE MOVEMENT TO AND FROM THE EDGE OF THE BED. PT NEEDED EDUCATION AND PROMPTING ON EATING HIS MEALS AND FOOD SLOWER. I OBSERVED THE PT EATING HIS FOOD AT A VERY FAST PACE AND WITH THIS, HE'D SWALLOW WRONG, MAKING HIM COUGH HARSHLY, PUSHING HIM FURTHER INTO RESPIRATORY DISTRESS. PT ATE 100% OF HIS CHEESEBURGER, CHIPS, FRUIT AND [place]. I ASSISTED PT BACK INTO BED AND PLACED HIM BACK ON BIPAP. HE HAS NO OTHER NEEDS TO BE MET. STATES HE'S COMFORTABLE. CALL LIGHT WITHIN REACH. BED ALARM ON. FALL PRECAUTIONS IN PLACE. WILL CONTINUE TO MONITOR.
--- NOTE | 2018-11-11 15:11 | NUR ---
PT STILL RESTING IN BED ON BIPAP. PT REMAINS STABLE AND COMFORTABLE. CALL LIGHT WITHIN REACH. WILL CONTINUE TO MONITOR.
--- NOTE | 2018-11-11 16:12 | NUR ---
ASSESSMENT COMPLETED AT THIS TIME. PT REQUESTING DRINKS OF WATER SO PLACED ON 4 L/MIN O2 VIA NC AND BIPAP TAKEN OFF. PT COUGHING A LOT AT THIS TIME AND THEN SOB-AFTER A FEW MINUTES PT WAS ABLE TO BREATHE EASIER. NO CHANGE IN PT'S ASSESSMENT. KIRAN DRAINING WELL. CALL LIGHT WITHIN REACH. PT DENIES ANY NEEDS TO BE MET AT THIS TIME. FALL PRECAUTIONS IN PLACE. WILL CONTINUE TO MONITOR.
--- NOTE | 2018-11-11 17:07 | NUR ---
PT SITTING UP IN BED WITHOUT ANY ISSUES WITH O2 VIA NC. PT STATES HE WOULD LIKE TO ORDER DINNER IN ANOUTHER HOUR OR SO. PT STATES HIS ANXIETIES OVER TONIGHT BEING "LIKE LAST NIGHT." WILL PASS ONTO E TAILER TO POSSIBLY GIVE SOMETHING FOR ANXIETY PRIOR TO BED. DENIES ANY FUTHER NIGHTS. CALL LIGHT WITHIN REACH. WILL CONTINUE TO MONITOR.
--- NOTE | 2018-11-11 18:02 | NUR ---
DINNER ORDERED FOR THE PT. KIRAN EMPTIED- 500 ML CLEAR, LIGHT YELLOW DRAINAGE. PT SITTING UP IN BED WITHOUT ANY SOB ON O2 VIA NC. DENIES ANY NEEDS. CALL LIGHT WITHIN REACH. WILL CONTINUE TO MONITOR.
--- NOTE | 2018-11-11 18:17 | NUR ---
UPDATED DR. MONTES AT THIS TIME IN REGARDS TO PT'S CONDITION/ HIS DAY ON BIPAP. MENTIONED PT COULD BENEFIT FROM MEDICATION FOR ANXIETY/SOMETHING TO ASSIST WITH SLEEP TONIGHT PT MENTIONED TO ME HIS NERVOUSNESS ABOUT THE NIGHT AHEAD (DOESN'T WANT IT TO BE LIKE LAST NIGHT).
--- NOTE | 2018-11-11 19:28 | NUR ---
RECEIVED REPORT FROM DONNA DONAHUE. ASSISTED pt FROM COMMODE TO BED. pt SITTING ON SIDE OF BED EATING DINNER. CALL LIGHT WITHIN REACH, BED ALARM ON.
--- NOTE | 2018-11-11 21:06 | NUR ---
CALL LIGHT ON. pt REPORTED "I'M HYPERVENTILATING", RESP RATE = 21. APPLIED BIPAP. pt REPORTED "FEELING BETTER". IV NOT FLUSHING, NEW IV PLACED BY DONNA ESTEBAN. KIRAN CARE DONE. VSS. RT INTO DO [facility] [place]. pt REQUESTED COFFEE, ON 4L VIA NC WATCHING TV, SITTING IN BED. CALL LIGHT WITHIN REACH.
--- NOTE | 2018-11-11 21:43 | NUR ---
ABX INFUSING (SEE MAR). IV FLUSHES WELL. pt AGREED TO BE ON BIPAP. SITTING IN BED. CALL LIGHT WITHIN REACH. NO FURTHER REQUESTS AT THIS TIME.
--- NOTE | 2018-11-11 21:57 | NUR ---
CALL LIGHT ON. ASSISTED pt WITH LIGHTS. LAYING IN BED. IV INFUSING. CALL LIGHT WITHIN REACH, BED ALARM ON.
--- NOTE | 2018-11-11 22:37 | NUR ---
BIPAP AND IV PUMP ALARMING. pt HAD BIPAP MASK OFF, STATED "I JUST NEED TO CLEAR MY MOUTH". TISSUES PROVIDED. BIPAP MASK ON. IV INFUSION RUNNING. CALL LIGHT WITHIN REACH, BED ALARM ON.
--- NOTE | 2018-11-11 22:57 | NUR ---
IV INFUSION COMPLETE. IV SL PER DONNA ESTEBAN.
--- NOTE | 2018-11-12 00:04 | NUR ---
ROUNDED ON pt. RESTING WITH EYES CLOSED, RESPIRATIONS REGULAR, RATE = 17. BED ALARM ON. CALL LIGHT WITHIN REACH.
--- NOTE | 2018-11-12 00:26 | NUR ---
RT FINISHED NEB TREATMENT. pt DROWSY. ASSESSMENT DONE. OUTPUT RECORDED. CALL LIGHT WITHIN REACH. BED ALARM ON. NO REQUESTS AT THIS TIME. pt HAS BIPAP ON.
--- NOTE | 2018-11-12 02:18 | NUR ---
ROUNDED ON pt. RESTING WITH EYES CLOSED RESPIRATIONS REGULAR AND UNLABORED. RATE = 16. BIPAP ON. CALL LIGHT WITHIN REACH, BED ALARM ON.
--- NOTE | 2018-11-12 03:01 | NUR ---
BIPAP ALARMING. pt ADJUSTING MASK. ALARM CLEARED. pt RESTING WITH EYES CLOSED. RESPIRATIONS REGULAR. CALL LIGHT WITHIN REACH. BED ALARM ON.
--- NOTE | 2018-11-12 04:18 | NUR ---
BIPAP ALARMING. RESITUATED MASK, ALARM RESOLVED. pt DROWSY. ASSESSMENT DONE. VSS. RT IN ROOM FOR NEB. CALL LIGHT WITHIN REACH. BED ALARM ON.
--- NOTE | 2018-11-12 05:04 | NUR ---
ROUNDED ON pt. RESTING WITH EYES CLOSED, BIPAP ON, RESPIRATIONS REGULAR. RATE = 17. CALL LIGHT WITHIN REACH. BED ALARM ON.
--- NOTE | 2018-11-12 06:04 | NUR ---
ROUNDED ON pt. RESTING WITH EYES CLOSED, RESPIRATIONS REGULAR. RATE = 18. BIPAP ON. CALL LIGHT WITHIN REACH. BED ALARM ON
--- NOTE | 2018-11-12 07:31 | NUR ---
PT ASLEEP SOUNDLY WITH BIPAP IN PLACE. NO S/S OF DISCOMFORT OR PAIN. CALL LIGHT WITHIN REACH. WILL CONTINUE TO MONITOR.
--- NOTE | 2018-11-12 08:10 | NUR ---
PT PLACED ON 4 L/MIN O2 VIA NC FROM BIPAP AT THIS TIME. ASSESSMENT COMPLETED. PT SOMEWHAT CONFUSED AND FORGETFUL. REORIENTATION AND EDUCATION GIVEN. PT IS ALERT, PLEASANT AND COOPERATIVE WITH SLIGHT ANXIETY- EMOTIONAL SUPPORT GIVEN. 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 CLEAR LUNG SOUNDS THROUGHOUT. VERY THICK SPUTUM IN VERY LARGE QUANTITIES- PRN ROBITUSSIN GIVEN. PT HAS ORAL YANKAUR IN HAND FOR PRN ORAL SUCTIONING. SALINE LOCKED- RIGHT AC PIV FLUSHES WELL WITHOUT ISSUES. ACTIVE BOWEL SOUNDS- LAST BM YESTERDAY 11/11 EVENING UP ON COMMODE. 2+ EDEMA IN BLE. PT HAD QUESTIONS IN REGARDS TO PLAN OF CARE- EDUCATION GIVEN- REQUIRES REINFORCEMENT. HE DENIES ANY PAIN OR N/V. STATES THAT HIS BREATHING IS "OKAY" RIGHT NOW AND STATES THAT HE HAD A "MUCH BETTER NIGHT LAST NIGHT." PT SIPPING FRESH COFFEE SITTING UP AT 90 DEGREES IN HIS BED. HE DENIES ANY FURTHER NEEDS TO BE MET AT THIS TIME. CALL LIGHT WITHIN REACH. FALL PRECAUTIONS IN PLACE AND BED ALARM ON. WILL CONTINUE TO MONITOR.
--- NOTE | 2018-11-12 09:16 | NUR ---
PT NAPPING IN BED. HE APPEARS COMFORTABLE WITH NO BREATHING ISSUES OR SOB. ON 4 L/MIN O2 VIA NC HE'S AT 97% O2 SATURATION. UNASYN INITIATED IN RIGHT AC PIV WITHOUT ISSUES. CALL LIGHT WITHIN REACH. WILL CONTINUE TO MONITOR.
--- NOTE | 2018-11-12 10:30 | NUR ---
FULL BED BATH COMPLETE AT THIS TIME INCLUDING KIRAN CATH/ZENAIDA CARES. GOWN CHANGED. TOP DENTURES CLEANED/ORAL CARES DONE AND PT NOW WEARING HIS TOP DENTURES. PT UPDATED ON HIS PLAN OF CARE- PLAN TO TRANSFER TO M/S UNIT TODAY PER DR. MONTES WHO WAS JUST AT THE BEDSIDE TO SEE PT. PT STATES HIS UNDERSTANDING AND HAS NO QUESTIONS. HE'S IN HIGHER SPIRITS DUE TO HIS IMPROVED CONDITION. HE DENIES ANY FURTHER NEEDS AT THIS TIME. CALL LIGHT WITHIN REACH. WILL CONTINUE TO MONITOR.
--- NOTE | 2018-11-12 12:00 | NUR ---
PT SITTING UP IN BED ON TELEPHONE WITH HIS SISTER. PT IS IN NO RESPIRATORY DISTRESS AND IS COMFORTABLE. AWAITING ROOM ASSIGNMENT FOR M/S TRANSFER. CALL LIGHT WITHIN REACH. WILL CONTINUE TO MONITOR.
--- NOTE | 2018-11-12 12:48 | NUR ---
THIS RN ASSISTED PT WITH HELP OF WALKER UP TO RECLINER. PT SOMEWHAT SOB WITH THE FEW STEPS BUT IT TOOK LESS TIME THAN IT HAS THE LAST TWO DAYS TO RECOVER BACK TO NORMAL RESPIRATORY RATE AFTER THE EXERTION. PRN ROBITUSSIN GIVEN AGAIN TO CONTINUE ASSISTING PT WITH HIS COUGH. PT TO BE TRANSFERED TO /S SHORTLY. WILL CONTINUE TO MONITOR.
--- NOTE | 2018-11-12 13:08 | NUR ---
PT HAS ARRIVED INTO ROOM 109 ON M/S UNIT AT THIS TIME. THIS RN WILL BE CONTINUING PT CARE SO NO REPORT NEEDED TO BE GIVEN TO ANOTHER NURSE. PT TOLERATED TRASNFER WELL- WAS PUSHED OVER IN RECLINER WITH ALL BELONGINGS PRESENT WELL HIS LUNCH TRAY JUST DELIVERED AND HIS BIPAP MACHINE. PT REMAINS UP IN THE RECLINER WITHOUT ANY BREATHING ISSUES, PAIN OR COMPLICATIONS. CONDITION AND VS ARE STABLE UPON ARRIVAL. 4 L/MIN O2 VIA NC IN PLACE. STARTING HIS LUNCH NOW. PT REMAINS ON CONTINUOUS PULSE OX. CALL LIGHT WITHIN REACH. WILL CONTINUE TO MONITOR.
--- NOTE | 2018-11-12 13:50 | NUR ---
PT HAS EATEN 100% OF HIS LUNCH AND REMAINS UP IN HIS CHAIR WITH NO ISSUES OR COMPLAINTS. CALL LIGHT WITHIN REACH. WILL CONTINUE TO MONITOR.
--- NOTE | 2018-11-12 16:20 | NUR ---
PT REMAINS UP IN RECLINER. 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 HE CONTINUES TO DENY PAIN. CALL LIGHT WITHIN REACH. WILL CONTINUE TO MONITOR.
--- NOTE | 2018-11-12 17:16 | NUR ---
KIRAN CATHETER COLLECTION BAG EXCHANGED AT THIS TIME- PREVIOUS ONE WAS LEAKING. PT REMAINS UPRIGHT IN RECLINER ON 4 L/MIN O2 VIA NC. NO PAIN. NO SOB. DINNER ORDERED. CALL LIGHT WITHIN REACH. WILL CONTINUE TO MONITOR.
--- NOTE | 2018-11-12 17:20 | NUR ---
Pt resting in his bed visiting with his family. He denies any pain or other problems at this time. Pillow placed under his right arm.
--- NOTE | 2018-11-12 18:38 | NUR ---
PATIENT SITTING IN CHAIR. FRESH WATER GIVEN. CALL LIGHT IN REACH. NO FURTHER NEEDS AT THIS TIME.
--- NOTE | 2018-11-12 19:01 | NUR ---
RECIEVED CHANGE OF SHIFT REPORT FROM GODFREY THOMPSON. PATIENT SITTING UP IN CHAIR WATCHING TV. KIRAN CATHETER DRAINING YELLOW URINE. WHITE BOARD UPDATED. CALL LIGHT WITHIN REACH. NO MORE NEEDS AT THIS TIME.
--- NOTE | 2018-11-12 20:20 | NUR ---
ASSESSMENT COMPLETE. MEDICATION ADMINISTRATION PER NOV ORDER. 4 L VIA NC. PATIENT EXPERIENCES SOB WITH EXERTIONS. BREATHING TREATMENT PROVIDED PER NOV ORDER, PATIENT REPORTS FEELING BETTER AFTER BREATHING TREATMENT. PATIENT COUGHED UP THICK CLEAR TO LIGHT YELLOW SPUTUM. KIRAN CATHETER DRAINING YELLOW URINE. IV ASSESSED TO BE PATENT. PATIENT DENIES PAIN OR CHEST PAIN. EDEMA NOTED IN BLE, REFER TO ASSESSMENT. CALL LIGHT WITHIN REACH. NO MORE NEEDS AT THIS TIME.
--- NOTE | 2018-11-12 22:00 | NUR ---
IV MACHINE ALARMING, PT BENT HIS RIGHT ARM, IV IN RAC. PLEASANT, BUT FORGETFUL.
--- NOTE | 2018-11-12 22:45 | NUR ---
ROUNDED ON PATIENT SITTING UP IN CHAIR. PRN COUGH MEDICATION PROVIDED TO PATIENT AND FRESH WATER PROVIDED TO PATIEN PER PATIENT REQUEST. CALL LIGHT WITHIN REACH. NO MORE NEEDS AT THIS TIME.
--- NOTE | 2018-11-12 23:29 | NUR ---
V/S AND I&O DONE AND CHARTED. ICE WATER REFILLED. BLACK COFFEE GIVEN PER PATIENT'S REQUEST.
--- NOTE | 2018-11-13 00:59 | NUR ---
ROUNDED ON PATIENT TO ADMINISTER SCHEDULED BREATHING TREATMENT PER NOV ORDER. CALL LIGHT WITHIN REACH. NO MORE NEEDS AT THIS TIME.
--- NOTE | 2018-11-13 04:04 | NUR ---
ROUNDED ON PATIENT RESTING IN BED WITH BIPAP ON. CPOX, WNL. RESPIRATORY RATE IS EVEN AND UNLABORED. CALL LIGHT WITHIN REACH.
--- NOTE | 2018-11-13 04:59 | NUR ---
PATIENT SLEPT WELL THROUGHOUT THE NIGHT. SCHEDULED NEBS. REGULAR DIET. PT/OT/ST. UP TO CHAIR THIS SHIFT. PRN COUGH MEDICATION. IV ABX X1. 4L VIA NC, CHRONIC. COUDE CATHETER. CPOX, WNL. SLEPT WITH BIPAP THROUGHOUT THE NIGHT. 1-2 PA WITH FWW TO BSC. IS.
--- NOTE | 2018-11-13 05:30 | NUR ---
ASSESSMENT COMPLETE, REFER TO ASSESSMENT. BIPAP REMOVED AND 4L VIA NC PLACED ON PATIENT. CATHETER CARE PERFORMED. PATIENT DENIES PAIN, SOB, DIFFICULTY BREATHING, OR CHEST PAIN. INTAKE&OUTPUT AND VITALS OBTAINED BY BERNA THOMPSON. CALL LIGHT WITHIN REACH. CPPETRA, WNL. POSSESSIONS AT BEDSIDE.
--- NOTE | 2018-11-13 07:28 | NUR ---
REPORT RECEIVED FROM DONNA MCCLELLAN. PT LAYING IN BED AND APPEARS TO BE ASLEEP WITH O2 IN PLACE.
--- NOTE | 2018-11-13 08:20 | NUR ---
TOOK PTS BREAKFAST ORDER THIS A.M. AND HE WAS GRUMPY ABOUT HOW OFTEN STAFF HAD BEEN IN HIS ROOM. ASKED IF WE COULD LEAVE HIM ALONE. CALL LIGHT IN PLACE.
--- NOTE | 2018-11-13 10:01 | NUR ---
PT ASSISTED UP TO CHAIR AFTER WAKING HIM UP. PT STATES HE DIDNT REALIZE HE HAD SLEPT AND IS A LITTLE CONFUSED. TOOK PILLS, NOTED TO CHOKE ON WATER AND INSTRUCTED TO TIP CHIN TO CHEST AFTER WHICH HE DID NOT CHOKE AGAIN. GIVEN MORNING MEDS.
--- NOTE | 2018-11-13 11:28 | NUR ---
TALKED WITH THE PATIENT, HE STATES HE IS OK TO GO TO [facility]. CALLED AND SPOKE WITH SON CRICKET. AFTER TALKING WITH HIM HE STATES THAT HE UNDERSTANDS HIS FATHER NEEDS MORE HELP AND WANTS HIM TO STAY IN [place], SO HE STATES [facility] WOULD BE FINE WITH HIM ALSO.
--- NOTE | 2018-11-13 11:28 | NUR ---
REMOVED KIRAN WO DIFFICULTY. 100ML URINE RECORDED.
--- NOTE | 2018-11-13 12:19 | NUR ---
FAXED CHART NOTES TO [facility] INCLUDING FACE SHEET, H AND P, PROG NOTES, IMAGING, AND PT EVAL. RECIEVED FAX CONFIRMATION. ATTEMEPTED TO CALL [facility], MESSAGE LEFT FOR SAMMIE TO CALL.
[2018-11-13] MEDS ORDERED: AMOX TR-K CLV1 EACH PO (12:48)
[2018-11-13] MEDS ORDERED: IPRAT-ALBUT 0.5-3 ML INH (12:49)
[2018-11-13] MEDS ORDERED: TAMSULOSIN HCL0.4 MG PO (12:50)
[2018-11-13] MEDS ORDERED: ONDANSETRON ODT4 MG PO (12:50)
[2018-11-13] MEDS ORDERED: NICORETTE4 M2 BUCCAL (12:51)
[2018-11-13] MEDS ORDERED: ROSUVASTATIN CA20 MG PO (12:51)
[2018-11-13] MEDS ORDERED: TRAZODONE HCL50 MG PO (12:52)
[2018-11-13] MEDS ORDERED: PREDNISONE20 MG PO (12:53)
[2018-11-13] MEDS ORDERED: SENNA PLUS TAB1 EACH PO (12:53)
[2018-11-13] MEDS ORDERED: PULMICORT0.5 MG/2 M INH (12:55)
--- NOTE | 2018-11-13 13:08 | NUR ---
FAXED ORDERS AND PASRR TO [facility]. RECIEVED FAX CONFIRMATION.
== END 2018-11-13 14:20 | DRG 177 ==
LOC: ED 20:04 → CCU 20:05 → MS 20:05 → CCU 11-08 18:50 → MS 11-12 13:00
PROVIDERS: ADMIT Internal Medicine
PROC: 5A09357 Assistance with Respiratory Ventilation, Less than 24 Consecutive Hours, Continuous Positive Airway Pressure (ICD-10-PCS; principal; 2018-11-08)
DX: J69.0 Pneumonitis due to inhalation of food and vomit (principal); J96.21 Acute and chronic respiratory failure with hypoxia; G93.41 Metabolic encephalopathy; J44.1 Chronic obstructive pulmonary disease with (acute) exacerbation; E86.0 Dehydration; I12.9 Hypertensive chronic kidney disease with stage 1 through stage 4 chronic kidney disease, or unspecified chronic kidney disease; F17.210 Nicotine dependence, cigarettes, uncomplicated; N18.3 Chronic kidney disease, stage 3 (moderate); N40.1 Benign prostatic hyperplasia with lower urinary tract symptoms; R39.14 Feeling of incomplete bladder emptying; E78.5 Hyperlipidemia, unspecified; R60.0 Localized edema; T46.1X5A Adverse effect of calcium-channel blockers, initial encounter; Z99.3 Dependence on wheelchair; Z79.899 Other long term (current) drug therapy
CPT/HCPCS: 36415; 51702; 71045; 80048; 80053; 80069; 81001; 83735; 83880; 84484; 85025; 85379; 87502; 92610; 93005; 93010; 94640; 94660; 94667; 94668; 94762; 96374; 96375; 97110; 97116; 97162; 97165; 99285-25; 99406; J0295; J1650; J2270; J2405; J2930; J7120; J7512